=== PATIENT | male | born 1990 | race Caucasian/White ===

== ENCOUNTER 2021-07-29 08:32 | Emergency (ER) | payer BC, SELFPAY ==
--- NOTE | ~2021-07-29 | XR_ITS ---
EXAMINATION: XR abdomen/kub 1V INDICATION: Kidney stone TECHNIQUE: Supine views of the abdomen were obtained on 2 radiographs. COMPARISON: CT from today FINDINGS: A 5 mm stone projects over the right sacrum in the expected location of the right distal ur eteral stone described on CT. There are phleboliths of the pelvis. No additional urolithiasis is iden tified. The bowel gas pattern is normal. IMPRESSION: 1. 5 mm stone right distal ureter projecting over the right sacrum. Reviewed, dictated and finalized at location A.
--- NOTE | ~2021-07-29 | CT_ITS ---
EXAMINATION: CT abdomen pelvis wo con DATE: 07/29/2021 09:24 INDICATION: Right flank pain. Vomiting. TECHNIQUE: Computed tomography (CT) of the abdomen and pelvis was performed without intravenous contr ast. Automated exposure control and iterative reconstruction technique were employed. The dose-length product was 242.02 mGy-cm. COMPARISON: None. FINDINGS: The visualized portions of the lung bases are clear without pneumonia or pleural effusion. The heart size is normal. No pericardial effusion. The liver, gallbladder, spleen, pancreas, and left kidney are normal. There is asymmetric edema around right kidney. There is moderate right hydronephr osis and proximal hydroureter. There is a 5 mm stone in right ureter where it crosses the iliac vesse ls. There are no dilated loops of bowel. The appendix is normal. There are no pathologically enlarged lymph nodes. There is no free intraperitoneal fluid. There is mild lumbar spondylosis. IMPRESSION: 1. 5 mm stone in mid right ureter with moderate right hydronephrosis and hydroureter. Reviewed, dictated and finalized at location A. IMPRESSION: 1. 5 mm stone in mid right ureter with moderate right hydronephrosis and hydrou reter.
[2021-07-29 08:51] VITALS: BP 143/93; PULSE 87; RESP 16; TEMP 36.3; O2SAT 97
[2021-07-29 09:02] LABS: Basophils Absolute Auto 0.1 K/mm3 (0.0-0.1); Basophils Percent Auto 0.5 % (0.2-1.2); Eosinophils Absolute Auto 0.2 K/mm3 (0-0.3); Eosinophils Percent Auto 1.5 % (0-4.4); Hemoglobin 15.6 g/dL (14.0-18.0); Immature Granulocyte Absolute 0.03 K/mm3 (0.00-0.031); Immature Granulocyte Percent A 0.3 % (0-0.5); Lymphocytes Absolute Auto 1.36 K/mm3 (0.9-3.2); Lymphocytes Percent Auto 12.6 % (18.3-44.2); Mean Corpuscular HGB Conc 35.5 g/dl (32-36); Mean Corpuscular Hemoglobin 30.3 pg (26-34); Mean Corpuscular Volume 85.4 fl (80-100); Mean Platelet Volume 9.2 fl (7.4-10.4); Monocytes Percent Auto 9.6 % (2.6-8.5); Neutrophils Absolute Auto 8.1 K/mm3 (1.3-6.7); Neutrophils Percent Auto 75.5 % (45.5-73.1); Platelet Count Result 234 k/mm3 (150-375); Red Blood Count 5.15 M/mm3 (4.6-6.20); Red Cell Distribution Width 11.5 % (11.5-14.5); White Blood Count 10.8 K/mm3 (4.5-10.0)
--- NOTE | 2021-07-29 09:02 | ED.BACK ---
HPI - Back Pain/Injury General Chief Complaint: Back Pain/Injury Stated Complaint: possible kidney stone Time Seen by Provider: 07/29/21 08:47 Source: RN notes reviewed History of Present Illness HPI Narrative: Patient presents emergency department from home for right flank pain. Patient states he had similar symptoms approximately week ago that resolved on their own. He states that the symptoms began at 11 PM last night and have continued the pain is located in the right flank and radiates around the right lower abdomen described as sharp and stabbing associate with nausea. States he did take 1 500 mg Tylenol at home this morning with no relief denies any fevers or chills chest pain shortness of breath diarrhea or any other symptoms Related Data Allergies Allergy/AdvReac Type Severity Reaction Status Date / Time No Known Allergies Allergy Verified 07/29/21 08:55 Review of Systems Review of Systems: Gen.: Denies fevers or chills ENT: Denies congestion Respiratory: Denies shortness of breath or cough CV: Denies chest pain or palpitations GI: See HPI denies burning, urgency, frequency or hematuria Musculoskeletal: Denies back pain or muscle pain Neuro: Denies numbness, tingling, weakness or focal weakness Skin: Denies rash Except as documented, all other systems reviewed and negative [facility] Past Medical History Medical History (Updated 07/29/21 @ 11:05 by Larry Hernández DO) Patient denies significant medical history Social History Social History (Updated 07/29/21 @ 09:03 by Larry Hernández DO) Smoking status: Never smoker Exam Narrative: APPEARANCE: No acute distress, nontoxic, resting in bed HEENT: Normocephalic, atraumatic, OMM RESPIRATORY: No respiratory distress, clear to auscultation bilaterally with no rhonchi wheezing or rales CARDIOVASCULAR: RRR s murmur ABDOMINAL: Soft nondistended tender palpation right upper quadrant right lower quadrant no tenderness left lower quadrant left lower quadrant no rebound or guarding, right flank tenderness MUSCULOSKELETAl: Moves all extremities. No clubbing, cyanosis or edema. NEURO: Awake and alert. Following commands, speech normal, no focal deficits SKIN:: Warm, dry. Normal Color PSYCHIATRIC: Normal affect/mood Course Course Emergency Course: Called and discussed with [facility] for Dr. Stinson presentation work-up at this time we will set the patient up for lithotripsy tomorrow patient may be discharged and I will call the patient for instructions for follow-up tomorrow Discussed with patient results of workup and diagnosis. Discussed need for follow-up with primary care, proper use of medication, and reasons to return to the emergency department. Patient understands and agrees to current treatment plan Vital Signs Vital signs: Vital Signs Temperature 97.3 F L 07/29/21 08:51 Pulse Rate 87 07/29/21 08:51 Respiratory Rate 16 07/29/21 08:51 Blood Pressure 143/93 H 07/29/21 08:51 Pulse Oximetry 97 07/29/21 08:51 Temperature 97.3 F L 07/29/21 08:51 Pulse Rate 87 07/29/21 08:51 Respiratory Rate 16 07/29/21 08:51 Blood Pressure 143/93 H 07/29/21 08:51 Pulse Oximetry 97 07/29/21 08:51 MDM - Back Pain/Injury Lab Data Result diagrams: 07/29/21 08:50 07/29/21 08:50 Labs: Lab Results 07/29/21 07/29/21 07/29/21 Range/Units 08:50 08:50 08:50 WBC 10.8 H (4.5-10.0) K/mm3 RBC 5.15 (4.6-6.20) M/mm3 Hgb 15.6 (14.0-18.0) g/dL Hct 44.0 (42.0-52.0) % MCV 85.4 (80-100) fl MCH 30.3 (26-34) pg MCHC 35.5 (32-36) g/dl RDW 11.5 (11.5-14.5) % Plt Count 234 (150-375) k/mm3 MPV 9.2 (7.4-10.4) fl Immature Gran % (Auto) 0.3 (0-0.5) % Neut % (Auto) 75.5 H (45.5-73.1) % Lymph % (Auto) 12.6 L (18.3-44.2) % [place] % (Auto) 9.6 H (2.6-8.5) % Eos % (Auto) 1.5 (0-4.4) % Baso % (Auto) 0.5 (0.2-1.2) % Lymph # (Auto) 1.36 (0.9-3.2) K
[2021-07-29 09:06] LABS: Add Urine Microscopic? YES; Appearance Urine Clear (Clear); Bilirubin Urine Negative (Negative); Blood Urine 3+ (Negative); Color Urine Colorless (Yellow); Glucose Urine UA Negative (Negative); Ketones Urine Negative (Negative); Leukocyte Esterase Ur Negative LEU/UL (Negative); Nitrate Urine Negative (Negative); Protein Urine Negative (Negative); Urobilinogen Urine Negative mg/dL (<2.0); WBC Urine 0-3 /hpf
[2021-07-29] MEDS: SODIUM CHLORIDE 0.9% IV 1,000 ML 999 ML IV CONT (09:10)
[2021-07-29] MEDS: KETOROLAC 30 MG/ML VIAL (*BKC) IV PUSH (09:11)
[2021-07-29] MEDS: ONDANSETRON INJ 4 MG/2 ML VIAL IV PUSH (09:11)
[2021-07-29 09:12] LABS: Alanine Aminotransferase 19 U/L (4-50); Albumin Level 4.8 g/dL (3.5-5.1); Alkaline Phosphatase 75 U/L (38-126); Anion Gap 12 mmol/L (8-16); Aspartate Amino Transferase 32 U/L (17-59); Bilirubin,Total 1.5 mg/dL (0.2-1.3); Blood Urea Nitrogen 18 mg/dL (9-20); Carbon Dioxide 25 mmol/L (22-30); Chloride 103 mmol/L (98-107); Estimated CRCL calculation 97 ml/min; Estimated Glomerular Filt Rate > 60; Glucose 101 mg/dL (65-110); Potassium 4.1 mmol/L (3.4-5.0); Sodium 140 mmol/L (137-145)
[2021-07-29 09:52] LABS: Specific Grav Ur 1.003 (1.001-1.035)
[2021-07-29] MEDS: MORPHINE SULFATE (*CRX) 4 MG/ML INJ IV PUSH (11:04)
[2021-07-29] MEDS: TAMSULOSIN HCL 0.4 MG CAPSULE PO (11:12)
== END 2021-07-29 11:43 | disposition home or self-care (01) ==
PROVIDERS: Emergency Provider Emergency Medicine
DX: N20.0 Calculus of kidney (principal)
CPT/HCPCS: 36415; 74018; 74176; 80053; 81001; 85025; 87086; 96361; 96374; 96375; 99284; A9270; J1885; J2270; J2405; J7030

== ENCOUNTER 2021-08-10 13:14 | Observation (INO) | payer BC, SELFPAY ==
[2021-08-10] VITALS (7 sets, daily range): BP systolic 131–154; BP diastolic 81–99; PULSE 70–85; RESP 16–21; TEMP 36–36.3; O2SAT 98–100; BMI 27.1
--- NOTE | ~2021-08-10 | XR_ITS ---
EXAMINATION: XR abdomen/kub 1V INDICATION: Right-sided pain TECHNIQUE: Supine views of the abdomen were obtained on 2 radiographs. COMPARISON: 07/29/2021 FINDINGS: A 5 mm right-sided stone demonstrates interval distal migration and now appearing to reside in the right distal ureter just above the ureterovesicular junction. There are phleboliths of the pe lvis. The bowel gas pattern is normal. IMPRESSION: 1. Interval distal migration of a right-sided stone now residing near the ureterovesicular junction. Reviewed, dictated and finalized at location B. CUTTER IMPRESSION: 1. Interval distal migration of a right-sided stone now residing near the urete rovesicular junction.
--- NOTE | ~2021-08-10 | XR_ITS ---
EXAMINATION: XR retrograde pyelo w/stent RT DATE: 08/11/2021 13:30 INDICATION: Right internal ureteral stent placement TECHNIQUE: Fluoroscopic images from a right internal ureteral stent placement are submitted for oralia bazan 14 seconds of fluoroscopy time. FINDINGS: No prior studies for comparison. There is a right double-J internal ureteral stent projecting in expected position, with proximal [place] loop at the level of the renal pelvis and distal loop in the pelvis within the bladder lumen. IMPRESSION: 1. Right internal ureteral stent placement. Please refer to real-time procedural findings for denita andrews. Reviewed, dictated and finalized at location A. VERY HELPER IMPRESSION: 1. Right internal ureteral stent placement. Please refer to real-time procedu ral findings for details.
[2021-08-10 13:41] LABS: Basophils Absolute Auto 0.1 K/mm3 (0.0-0.1); Basophils Percent Auto 0.5 % (0.2-1.2); Eosinophils Absolute Auto 0.1 K/mm3 (0-0.3); Hematocrit 41.6 % (42.0-52.0); Hemoglobin 14.4 g/dL (14.0-18.0); Immature Granulocyte Absolute 0.04 K/mm3 (0.00-0.031); Immature Granulocyte Percent A 0.4 % (0-0.5); Lymphocytes Absolute Auto 1.35 K/mm3 (0.9-3.2); Mean Corpuscular HGB Conc 34.6 g/dl (32-36); Mean Corpuscular Hemoglobin 29.4 pg (26-34); Mean Corpuscular Volume 85.1 fl (80-100); Mean Platelet Volume 9.1 fl (7.4-10.4); Monocytes Absolute Auto 0.9 K/mm3 (0.1-0.6); Monocytes Percent Auto 8.5 % (2.6-8.5); Neutrophils Percent Auto 76.6 % (45.5-73.1); Platelet Count Result 242 k/mm3 (150-375); Red Blood Count 4.89 M/mm3 (4.6-6.20); Red Cell Distribution Width 11.5 % (11.5-14.5); White Blood Count 10.4 K/mm3 (4.5-10.0)
--- NOTE | 2021-08-10 13:51 | ED.BACK ---
HPI - Back Pain/Injury General Chief Complaint: Back Pain/Injury Stated Complaint: R SIDED KIDNEY STONE Time Seen by Provider: 08/10/21 13:51 Source: patient Mode of arrival: ambulatory Limitations: no limitations History of Present Illness HPI Narrative: The patient is a 31-year-old male with a history of nephrolithiasis, known right sided 5 mm renal stone, presenting for evaluation of continued pain. Patient reports that he has had significant pain over the past 10 hours, refractory to treatment with his oral pain medication, as well as some nausea that is being controlled with Zofran. He denies fever, chills, hematuria or dysuria. He does report right-sided flank pain. Patient states that he saw Dr. Kuo and was offered trial of passage which he elected for initially. Patient states that he has been taking the hydrocodone every 3-4 hours without any improvement in his pain. Related Data Allergies Allergy/AdvReac Type Severity Reaction Status Date / Time No Known Allergies Allergy Verified 07/29/21 08:55 Review of Systems Review of Systems: CONSTITUTIONAL: Denies fever, chills, or sweats. EYES: Denies visual changes, redness, or discharge. ENT: Denies rhinorrhea, congestion, sore throat, or otalgia. CARDIOVASCULAR: Denies chest pain, palpitations, or edema. RESPIRATORY: Denies cough or dyspnea. GASTROINTESTINAL: Denies frontal abdominal pain, reports nausea, vomiting is improved, reports right flank pain GENITOURINARY: Denies dysuria or hematuria. SKIN: Denies rash or itching. MUSCULOSKELETAL: Denies back pain, joint pain, or myalgia. NEUROLOGIC: Denies headache, numbness, or weakness. [facility] Past Medical History Medical History Patient denies significant medical history Social History Social History Smoking status: Never smoker Exam Narrative: GENERAL: Awake, alert, conversant HEAD: Normocephalic, atraumatic. EYES: PERRLA and EOMI. ENT: Nares clear, no rhinorrhea or epistaxis. Mucous membranes moist. NECK: Supple. CHEST: No respiratory distress, breathing even and non labored HEART: Regular rate, sinus rhythm ABDOMEN:Non distended, non tender, mild right flank tenderness EXTREMITIES: Normal range of motion. No edema. SKIN: Warm, dry, no rash. NEURO:No focal deficits. Alert and oriented x3. Patient ambulatory with a narrow base, steady gait. Course Vital Signs Vital signs: Vital Signs Temperature 36.3 C L 08/10/21 13:23 Pulse Rate 85 08/10/21 13:23 Respiratory Rate 16 08/10/21 13:23 Blood Pressure 154/99 H 08/10/21 13:23 Pulse Oximetry 99 08/10/21 13:23 Temperature 36.3 C L 08/10/21 13:23 Pulse Rate 76 08/10/21 16:07 Respiratory Rate 18 08/10/21 16:07 Blood Pressure 151/97 H 08/10/21 16:07 Pulse Oximetry 100 08/10/21 16:07 MDM - Back Pain/Injury MDM Narrative Medical decision making narrative: Patient presenting for recurrence of right renal colic, flank pain. Patient seen previously in this ER, has been dosing Flomax, Zofran, pain medication without improvement in symptoms thus prompting visit today. He has right flank tenderness on exam. He is uncomfortable appearing at the time of assessment. He is nontoxic-appearing. Vital signs notable for mild hypertension. May be related to the pain he is experiencing. Patient was then given IV fluids, antiemetic, pain medication. KUB shows there has been some migration of the right ureteral stone. It is more distal now. No worsening kidney function. No urinary tract infection. I spoke with Dr. Goddard, patient was offered again trial of passage at home but elected to be admitted to the hospital given pain that is refractory to outpatient treatment. He was given a dose of Toradol in the ER. Patient was made n.p.o. at midnight. He will be taken for ureteroscopy tomorrow. Differential Diagnosis Differential d
[2021-08-10 13:57] LABS: Anion Gap 9 mmol/L (8-16); Blood Urea Nitrogen 19 mg/dL (9-20); Calcium 9.1 mg/dL (8.4-10.2); Carbon Dioxide 28 mmol/L (22-30); Chloride 101 mmol/L (98-107); Estimated CRCL calculation 96 ml/min; Estimated Glomerular Filt Rate > 60; Glucose 131 mg/dL (65-110); Potassium 3.8 mmol/L (3.4-5.0); Sodium 138 mmol/L (137-145)
[2021-08-10 14:12] LABS: Add Urine Microscopic? YES; Appearance Urine Clear (Clear); Bilirubin Urine Negative (Negative); Blood Urine 3+ (Negative); Color Urine Straw (Yellow); Glucose Urine UA Negative (Negative); Ketones Urine Trace mg/dL (Negative); Leukocyte Esterase Ur Negative LEU/UL (Negative); Mucus Urine Rare /lpf; Nitrate Urine Negative (Negative); Protein Urine Negative (Negative); Specific Grav Ur 1.011 (1.001-1.035); Urobilinogen Urine Negative mg/dL (<2.0); WBC Urine 0-3 /hpf
[2021-08-10] MEDS: MORPHINE SULFATE (*CRX) 4 MG/ML INJ IV PUSH (14:12)
[2021-08-10] MEDS: ONDANSETRON INJ 4 MG/2 ML VIAL IV PUSH (14:12)
[2021-08-10] MEDS: SODIUM CHLORIDE 0.9% IV 1,000 ML 999 ML IV CONT (14:14)
[2021-08-10] MEDS: KETOROLAC 15 MG/ML VIAL (*BKC) IV PUSH (15:20)
--- NOTE | 2021-08-10 15:23 | PM.IMHP ---
H&P: HPI History of Present Illness Date/Time: 08/10/21 15:23 This is a 31-year-old gentleman with no prior history of nephrolithiasis. He has been having intermittent right flank pain for the last month. He was seen emergency room on 07/29/2021 with a 5 mm mid to distal ureteral stone. He was sent home on pain medicine with a trial of conservative stone passage. He returns to the ER today with a 24 hour history of increasing right flank pain. He has not been vomiting. He does not note dysuria. He has not noted fevers. He is noted no chills. There is no symptoms of urinary tract infection. They did a KUB and the stone is now in the distal right ureter. He is uncomfortable and does not feel he can tolerate conservative trial of stone passage any longer. He would like intervention Chief Complaint: Calculus of the ureter Review of Systems Review of Systems: All systems reviewed & are unremarkable except as noted in HPI and below PMFSH Past Medical History Medical History Patient denies significant medical history Social History Social History Smoking status: Never smoker Comments He works in [employer] Home Medications and Allergies Home Medications Medication Instructions Recorded Confirmed Type hydrocodone-acetaminophen 1 tablet PO Q4H PRN #12 tablet 07/29/21 Rx ondansetron 4 mg PO Q6H PRN #10 tablet 07/29/21 Rx tamsulosin [Flomax] 0.4 mg PO DAILY #5 cap 07/29/21 Rx Allergies Allergy/AdvReac Type Severity Reaction Status Date / Time No Known Allergies Allergy Verified 07/29/21 08:55 Vital Signs Vital Signs - 24 hr 08/10/21 13:23 Temperature 97.3 F L Pulse Rate 85 Respiratory Rate 16 Blood Pressure 154/99 H Pulse Oximetry 99 Exam Const: General: cooperative, healthy appearing, alert, awake, Physically active and in distress mild Nutritional Appearance: average body habitus HENMT: Head: normal to inspection Ears: hearing grossly normal bilaterally Eyes: General: appearance normal, both eyes and all related structures Resp: Effort & Inspection: normal respiratory effort, able to speak in complete sentences, no cough and respiratory effort not decreased GI: Inspection: normal to inspection and no large pannus GI Palp: No Rigid due to palpation Back/Spine/Pelvis: Back: CVA tenderness (On the right) Skin: General skin exam: normal color and no rashes or lesions noted Neuro: General: patient oriented x3 Extrem: General: normal to inspection Psych: Appearance: grossly normal and well kempt H&P: Results Labs Labs: Short CBC 08/10/21 Range/Units 13:26 WBC 10.4 H (4.5-10.0) K/mm3 Hgb 14.4 (14.0-18.0) g/dL Hct 41.6 L (42.0-52.0) % Plt Count 242 (150-375) k/mm3 BMP 08/10/21 13:26 Sodium 138 Potassium 3.8 Chloride 101 Carbon Dioxide 28 BUN 19 Creatinine 1.10 Glucose 131 H Calcium 9.1 Urine 08/10/21 Range/Units 13:26 Urine Color Straw (Yellow) Urine Appearance Clear (Clear) Urine pH 6.0 (5.0-9.0) Ur Specific [place] 1.011 (1.001-1.035) Urine Protein Negative (Negative) mg/dL Urine Glucose (UA) Negative (Negative) mg/dL Assessment and Plan Assessment and plan (1) Right distal ureteral calculus: Code(s): N20.1 - Calculus of ureter Status: Acute Assessment and Plan: He has been trying to pass the stone for nearly a month. He has significant discomfort. He has failed a trial of conservative stone passage. He is now interested in intervention. We discussed ureteroscopy. He understands risks of bleeding, infection, damage to the urinary tract, inability to remove the stone. He would like to proceed. He will be admitted to our service overnight for pain control, antiemetics. He will be kept NPO for midnight. He will likely be discharged home after the procedur
--- NOTE | 2021-08-10 17:29 | ADMGEN ---
This patient, Kun Kaplan, was admitted to Medical Room 340-01. Patient/family oriented to hospital policies and general routines including ID bracelet, bed and alarms, visiting hours, pain management, procedures, bathroom and other care routines, personal items, smoking policy, room service/diet, and visiting hours. Information on how to activate the Rapid Response Team has been discussed. Patient/Family are encouraged to report perceived risks to care and to ask questions if they do not understand what they are told or what they should do.
[2021-08-10] MEDS: SODIUM CHLORIDE 0.9% IV 1,000 ML 125 ML IV CONT (17:35)
[2021-08-11] VITALS (7 sets, daily range): BP systolic 109–148; BP diastolic 64–99; PULSE 72–90; RESP 10–20; TEMP 36.2–37.1; O2SAT 98–100
[2021-08-11] MEDS: SODIUM CHLORIDE 0.9% IV 1,000 ML 125 ML IV CONT (04:50)
[2021-08-11 05:43] LABS: Basophils Absolute Auto 0.1 K/mm3 (0.0-0.1); Basophils Percent Auto 0.7 % (0.2-1.2); Eosinophils Absolute Auto 0.1 K/mm3 (0-0.3); Eosinophils Percent Auto 1.5 % (0-4.4); Hematocrit 38.2 % (42.0-52.0); Immature Granulocyte Absolute 0.02 K/mm3 (0.00-0.031); Immature Granulocyte Percent A 0.3 % (0-0.5); Lymphocytes Absolute Auto 1.15 K/mm3 (0.9-3.2); Lymphocytes Percent Auto 17.2 % (18.3-44.2); Mean Corpuscular Hemoglobin 29.5 pg (26-34); Mean Corpuscular Volume 86.8 fl (80-100); Mean Platelet Volume 9.2 fl (7.4-10.4); Monocytes Absolute Auto 0.8 K/mm3 (0.1-0.6); Monocytes Percent Auto 11.4 % (2.6-8.5); Neutrophils Absolute Auto 4.6 K/mm3 (1.3-6.7); Neutrophils Percent Auto 68.9 % (45.5-73.1); Platelet Count Result 202 k/mm3 (150-375); Red Cell Distribution Width 11.8 % (11.5-14.5); White Blood Count 6.7 K/mm3 (4.5-10.0)
[2021-08-11 05:56] LABS: Anion Gap 6 mmol/L (8-16); Blood Urea Nitrogen 14 mg/dL (9-20); Calcium 8.5 mg/dL (8.4-10.2); Carbon Dioxide 26 mmol/L (22-30); Chloride 106 mmol/L (98-107); Estimated CRCL calculation 105 ml/min; Estimated Glomerular Filt Rate > 60; Glucose 98 mg/dL (65-110); Potassium 4.1 mmol/L (3.4-5.0); Sodium 138 mmol/L (137-145)
[2021-08-11] MEDS: HYDROmorphone HCL INJ (*CRX) 1 MG/ML SYR 0.5 MG IV PUSH (08:04)
[2021-08-11] MEDS: TAMSULOSIN HCL 0.4 MG CAPSULE PO (08:06)
--- NOTE | 2021-08-11 10:40 | WPDHPUPDATE1 ---
History and Physical Update Update Date/Time: 08/11/21 10:40 History and Physical has been reviewed, including an updated exam of the patient. There are NO changes in the patient's condition. Risks, benefits, and alternatives have been discussed and questions answered. Patient agrees to proceed with procedure. Proceed with cystoscopy, right retrograde pyelogram, right ureteroscopy with stone extraction, possible laser and stent placement.
[2021-08-11] MEDS: LACTATED RINGERS 1,000 ML 30 ML IV CONT (12:00)
--- NOTE | 2021-08-11 12:15 | WPDANESEPPF ---
Anes - Initial Pre Proc Eval Procedure: Operation Date: 08/11/21 14:30 Proposed Procedures p Cystoscopy,Right Ureteroscopy,Right Retrograde Pyelogram,Right Stone Extraction,Possible Holmium Laser,Possible Stent Placment - Lake Stinson MD Date/Time: 08/11/21 12:15 Surgeon: Lake Stinson MD Pre Op Diagnosis: Renal colic Patient Data Age: 31 Gender: M Height: 1.83 m Weight: 90.7 kg Last Vital Signs Temp 37.1 C 08/11/21 11:57 Pulse 77 08/11/21 11:57 Resp 16 08/11/21 11:57 BP 148/99 H 08/11/21 11:57 Pulse Ox 100 08/11/21 11:57 Allergies Allergy/AdvReac Type Severity Reaction Status Date / Time No Known Allergies Allergy Verified 08/11/21 12:04 Home Medications Medication Instructions Recorded Confirmed Type hydrocodone-acetaminophen 1 tablet PO Q4H PRN #12 tablet 07/29/21 08/11/21 Rx ondansetron 4 mg PO Q6H PRN #10 tablet 07/29/21 08/11/21 Rx tamsulosin [Flomax] 0.4 mg PO DAILY #5 cap 07/29/21 08/11/21 Rx Laboratory Tests 08/10/21 08/10/21 08/10/21 13:26 13:26 13:26 WBC 10.4 K/mm3 H K/mm3 (4.5-10.0) RBC 4.89 M/mm3 M/mm3 (4.6-6.20) Hgb 14.4 g/dL g/dL (14.0-18.0) Hct 41.6 % L % (42.0-52.0) MCV 85.1 fl fl (80-100) MCH 29.4 pg pg (26-34) MCHC 34.6 g/dl g/dl (32-36) RDW 11.5 % % (11.5-14.5) Plt Count 242 k/mm3 k/mm3 (150-375) MPV 9.1 fl fl (7.4-10.4) Immature Gran % (Auto) 0.4 % % (0-0.5) Neut % (Auto) 76.6 % H % (45.5-73.1) Lymph % (Auto) 13.0 % L % (18.3-44.2) [place] % (Auto) 8.5 % % (2.6-8.5) Eos % (Auto) 1.0 % % (0-4.4) Baso % (Auto) 0.5 % % (0.2-1.2) Lymph # (Auto) 1.35 K/mm3 K/mm3 (0.9-3.2) [place] # (Auto) 0.9 K/mm3 H K/mm3 (0.1-0.6) Eos # (Auto) 0.1 K/mm3 K/mm3 (0-0.3) Baso # (Auto) 0.1 K/mm3 K/mm3 (0.0-0.1) Abs Immat Gran (auto) 0.04 K/mm3 H K/mm3 (0.00-0.031) Absolute Neuts (auto) 8.0 K/mm3 H K/mm3 (1.3-6.7) Absolute Nucleated RBC 0.0 K/mm3 K/mm3 (0.0-0.012) Nucleated RBC % 0.0 % % (0.0-0.2) Sodium 138 mmol/L mmol/L (137-145) Potassium 3.8 mmol/L mmol/L (3.4-5.0) Chloride 101 mmol/L mmol/L (98-107) Carbon Dioxide 28 mmol/L mmol/L (22-30) Anion Gap 9 mmol/L mmol/L (8-16) BUN 19 mg/dL mg/dL (9-20) Creatinine 1.10 mg/dL mg/dL (0.7-1.3) Estim Creat Clear Calc 96 ml/min ml/min Estimated GFR > 60 (59 - ) Glucose 131 mg/dL H mg/dL (65-110) Calcium 9.1 mg/dL mg/dL (8.4-10.2) Urine Color Straw (Yellow) Urine Appearance Clear (Clear) Urine pH 6.0 (5.0-9.0) Ur Specific [place] 1.011 (1.001-1.035) Urine Protein Negative mg/dL mg/dL (Negative) Urine Glucose (UA) Negative mg/dL mg/dL (Negative) Urine Ketones Trace mg/dL mg/dL (Negative) Ur Blood (Man) 3+ H (Negative) Urine Nitrate Negative (Negative) Urine Bilirubin Negative (Negative) Urine Urobilinogen Negative mg/dL mg/dL (<2.0) Leukocyte Esterase Rfl Negative NED/UL NED/UL (Negative) Urine RBC 11-20 /hpf H /hpf (0-2) Urine WBC 0-3 /hpf /hpf Urine Mucus Rare /lpf /lpf 08/11/21 08/11/21 05:17 05:17 WBC 6.7 K/mm3 K/mm3 (4.5-10.0) RBC 4.40 M/mm3 L M/mm3 (4.6-6.20) Hgb 13.0 g/dL L g/dL (14.0-18.0) Hct 38.2 % L % (42.0-52.0) MCV 86.8 fl fl (80-100) MCH 29.5 pg pg (26-34) MCHC 34.0 g/dl g/dl (32-36) RDW 11.8 % % (11.5-14.5) Plt Count 202 k/mm3 k/mm3 (150-375) MPV 9.2 fl fl (7.4-10.4) Immature Gran % (Auto) 0.3 % % (0-0.5) Neut % (Auto
[2021-08-11] MEDS: ceFAZolin 2 GM/D5W 50 ML 2 GM/50 ML BAG IVPB (13:03)
[2021-08-11] MEDS: LIDOCAINE HCL 2% GEL UROJET 10 ML PKG MUCOUS MEM (13:11)
--- NOTE | 2021-08-11 13:27 | W.PM.PROC2 ---
Procedure Note - Detailed Date of Procedure 08/11/21 Pre-op Diagnosis Renal colic, 5 mm right distal ureteral calculus Post-op Diagnosis same Procedure Performed Cystoscopy, right retrograde pyelogram, right ureteroscopy with stone extraction, right ureteral stent placement 4.8 [place] contour Surgeon Lake Stinson MD Anesthesia general Description of Procedure Patient is taken the operative suite and correctly identified. Once anesthesia was obtained he was placed in the dorsal lithotomy position and prepped and draped usual sterile fashion. Twenty-two [place] scope was inserted the bladder direct vision. There is no tumors noted. The right ureteral orifice was cannulated with a guidewire in. Rigid ureteral scope was then inserted. The stone was visualized. Using an escape basket retrieve the knees. Pyelogram was then performed to confirm placement of the stent. 4.8 [place] contour stent was then placed with the proximal end coiled in the renal pelvis and the distal in the bladder. 2% viscous lidocaine was inserted urethra patient is taken recovery room stable condition. He will be discharged home later today and follow up in a week's time for stent removal. Drains Yes Packing No Pathology yes Complications No immediate complications Condition stable Disposition PACU
--- NOTE | 2021-09-08 16:16 | PM.DS ---
DS: Admitting Diagnosis Discharge Date 08/11/21 Admitting Diagnosis right ureteral stone DS: Discharge Diagnosis Discharge Diagnosis (1) Right distal ureteral calculus: Code(s): N20.1 - Calculus of ureter Status: Acute DS: Summary Hospital Course Hospital Course: See note below. Time Spent with Patient Time attestation: Total time spent providing and/or coordinating discharge services: 30 minutes Patient underwent a Cystoscopy, right ureteroscopy with stone extraction, stent placement, right retrograde pyelogram on 08/11/[address] Stinson. He tolerated the procedure well, was sent to recovery in stable condition and to the floor for further observation. He was then discharged home after pain was well controlled. He can resume a normal diet, activity without restriction. He will continue home medications and follow up in the office in one week for stent removal. Exam Resp: Effort & Inspection: normal respiratory effort Cardio: Rate: regular rate GI: GI Palp: Yes Soft to palpation and No Tenderness to palpation present (GI) : General: Yes no CVA tenderness Extrem: General: no edema DS: Data Data Completed and Pending Completed studies during hospitalization: Pending at discharge 08/11/21 13:22 Surgical [PTH] Routine Discharge Plan Discharge Attending physician on discharge: Lake Stinson Consulting providers: Manpreet Baird ; Jared Goddard ; Jonah Pack ; Derick Vivar Discharging Clinician: Dayan Mercedes Anticipated Discharge Date/Time: 08/11/21 16:05 Patient Disposition: Home, Self-Care Activity: may shower Diet: as tolerated Discharge Instructions: Call our office to schedule a follow up in one week to remove your stent with Dr. Stinson in the office. Call the office if you develop a fever of >102, difficulty urinating or severe abdominal pain/vomiting. You should expect some blood in your urine, burning with urination and pain from you stent with activity or urination, this is normal. Patient Instructions: Antibiotic Form, Kidney Stones (DC), Pain Management (DC), Hydronephrosis (DC), Ureteroscopy (DC) Stand Alone Forms: General Discharge Information Follow-up/Referrals: Lake Stinson MD [Physician] - Discharge Medications: New hyoscyamine sulfate [Levsin] 0.125 mg tablet 0.125 mg PO QID Qty: 20 RF: 0 Continued hydrocodone-acetaminophen 5-325 mg tablet 1 tablet PO Q4H PRN (Reason: pain) Qty: 12 RF: 0 ondansetron 4 mg tablet,disintegrating 4 mg PO Q6H PRN (Reason: nausea and vomiting) Qty: 10 RF: 0 Discontinued tamsulosin [Flomax] 0.4 mg capsule 0.4 mg PO DAILY Qty: 5 RF: 0 Date of admission: 08/10/21 15:29 Primary Care Provider: PHYSICIAN,CHARTERED FINANCIAL ANALYST Admitting Provider: Lake Stinson Attending physician on admission: Lake Stinson Condition: Stable
== END 2021-08-11 18:13 | disposition home or self-care (01) ==
LOC: ANHED 15:31 → ANH3MED 16:18
PROVIDERS: Admitting Provider Urology; Emergency Provider Emergency Medicine; Visit Provider Urology
PROC: (CPT 52352; principal; 2021-08-11 14:30)
DX: N13.2 Hydronephrosis with renal and ureteral calculous obstruction (principal)
CPT/HCPCS: 52356; 36415; 74018; 74420; 80048; 81001; 82365; 85025; 88300; 96361; 96374; 96375; 96376; 99285; A9270; C1758; C1769; C2617; G0378; J0131; J0690; J1170; J1885; J2250; J2270; J2405; J2704; J3010; J7030; J7120; Q9966